=== PATIENT | female | born 1945 | race Caucasian/White ===

== ENCOUNTER → 2021-11-28 10:28 | Outpatient (BNVA) | payer MEDICARE, MEDICAID, SELFPAY | PROVIDERS: Visit Provider Psychiatry & Neurology Neurology | DX: H81.10 Benign paroxysmal vertigo, unspecified ear (principal); R25.1 Tremor, unspecified | CPT/HCPCS: 99212 ==

== ENCOUNTER → 2022-05-31 10:28 | Outpatient (BNVA) | payer MEDICARE, MEDICAID, SELFPAY | PROVIDERS: PCP Nurse Practitioner Gerontology; Visit Provider Psychiatry & Neurology Neurology | DX: H81.10 Benign paroxysmal vertigo, unspecified ear (principal); M54.2 Cervicalgia; R25.1 Tremor, unspecified | CPT/HCPCS: 99212 ==

== ENCOUNTER → 2022-06-14 10:28 | Outpatient (BNVA) | payer MEDICARE, MEDICAID, SELFPAY | PROVIDERS: PCP Nurse Practitioner Gerontology; Visit Provider Psychiatry & Neurology Neurology | DX: H81.10 Benign paroxysmal vertigo, unspecified ear (principal); R25.1 Tremor, unspecified; M54.2 Cervicalgia | CPT/HCPCS: 99212 ==

== ENCOUNTER 2023-03-29 12:20 | Outpatient (AMB) | payer MEDICARE, MEDICAID, SELFPAY ==
--- NOTE | 2023-03-29 12:31 | MHC.OFFVIS ---
Intake Vital Signs 03/29/23 12:32 Weight 217 lb 4 oz BP 132/80 Blood Pressure Location Lt brachial Position Sitting Pulse 95 Pulse Source Pulse Oximeter Temp 84 F L Pulse Oximetry (%) 98 Oxygen Delivery Method Room Air Intake Visit Reasons: 6m follow up -confirmed Intake Note: Pt presents today for 6 month fup still complains of headaches Allergies morphine Allergy (Severe, Verified 03/29/23 12:35) nausea and hives metformin Allergy (Intermediate, Verified 03/29/23 12:35) nausea and hives tizanidine Allergy (Intermediate, Verified 03/29/23 12:35) nausea and hives tramadol Allergy (Intermediate, Verified 03/29/23 12:35) nausea and hives hydromorphone [From Dilaudid] Adverse Reaction (Verified 03/29/23 12:35) Rash Medication List - Last Reconciled 03/29/23 by Nelia Silveira MD albuterol sulfate 2 mg PO Q8H bupropion HCl 100 mg PO .q12hrs buspirone 7.5 mg PO BID calcium citrate 1,200 mg PO DAILY dexlansoprazole (Dexilant) 60 mg PO DAILY fluticasone propion-salmeterol 250-50 mcg/dose (Advair Diskus) 1 inh inhalation Q12H gabapentin 300 mg PO TID glipizide ER 2.5 mg PO DAILY ipratropium-albuterol 20-100 mcg/actuation (Combivent Respimat) 1 puff inhalation Q6H levothyroxine 112 mcg PO DAILY lovastatin 40 mg PO DAILY mirtazapine 7.5 mg PO DAILY multivitamin 1 tab PO DAILY potassium chloride ER 10 mEq PO DAILY teriparatide ([place]eo) 20 mcg subcut DAILY warfarin 5 mg PO DAILY HPI HPI Comments History of Present Illness Details 77-year-old female with benign positional vertigo, exaggerated physiological tremor, restless leg syndrome comes for follow-up.Her dizzy spells are better. she has adapted by not bending over and avoiding some activities. Her tremors are well controlled with gabapentin and her restless leg syndrome is controlled with gabapentin. [facility] Medical History Anxiety Benign paroxysmal vertigo C. difficile colitis Cataract Colon polyp COPD (chronic obstructive pulmonary disease) Diabetes DVT (deep venous thrombosis) Fibromyalgia GERD (gastroesophageal reflux disease) Heart attack Hyperlipidemia Osteoporosis Pulmonary embolus Surgical History H/O shoulder surgery S/P IVC filter Family History Mother Cancer Social History Alcohol intake: never Patient Tobacco Use Status: Former Tobacco user Physical Exam Vital Signs: Last Vital Signs Temp 84 F L 03/29/23 12:32 Pulse 95 03/29/23 12:32 BP 132/80 03/29/23 12:32 Pulse Ox 98 03/29/23 12:32 Oxygen Delivery Method Room Air 03/29/23 12:32 Const General: cooperative, healthy appearing and comfortable Nutritional Appearance: overweight Orientation/consciousness: patient oriented x3 Eyes Pupils: Equal, round and reactive pupils present Neuro Other: mild bilateral upper extremity postural and action tremor. Fine finger movements in foot taps are normal. Tone was normal. better range of motion in neck - tightness in neck muscles General: patient oriented x3 Cranial nerves: Yes CN's II-XII intact bilaterally, Yes Equal, round and reactive pupils present and Yes Normal facial strength present Gait exam (Neuro): Normal gait present Assessment & Plan Assessment & Plan (1) Benign paroxysmal vertigo: Code(s): H81.10 - Benign paroxysmal vertigo, unspecified ear (2) Tremor: Code(s): R25.1 - Tremor, unspecified (3) Neck pain: Comment: severe spasm Code(s): M54.2 - Cervicalgia Plan Continue vestibular exercises. Continue gabapentin 300 mg q.a.m. q.noon and 600 mg q.h.s.. Continue warm compresses to neck and range of motion exercise to neck Medications: New gabapentin 300 mg PO TID 270 caps 3RF Coding Level of Care Code Est Pt Level 4 (41874) Diagnoses Benign paroxysmal vertigo H81.10 Tremor R25.1 Neck pain M54.2
[2023-03-29 12:32] VITALS: BP 132/80; PULSE 95; TEMP 28.8; O2SAT 98
== END 2023-03-29 13:14 | disposition home or self-care (01) ==
PROVIDERS: Visit Provider Psychiatry & Neurology Neurology
DX: H81.10 Benign paroxysmal vertigo, unspecified ear (principal); R25.1 Tremor, unspecified; M54.2 Cervicalgia
CPT/HCPCS: 99214

== ENCOUNTER → 2023-03-29 12:20 | Outpatient (BNVA) | payer MEDICARE, MEDICAID, SELFPAY | PROVIDERS: Visit Provider Psychiatry & Neurology Neurology | DX: H81.10 Benign paroxysmal vertigo, unspecified ear (principal); R25.1 Tremor, unspecified; M54.2 Cervicalgia | CPT/HCPCS: 99212 ==

== ENCOUNTER 2024-02-14 12:34 | Outpatient (AMB) | payer MEDICARE, MEDICAID, SELFPAY ==
--- NOTE | 2024-02-14 12:40 | MHC.OFFVIS ---
Vital Signs 02/14/24 12:41 Height 5 ft 3 in Weight 225 lb BMI 39.9 BP 122/70 Blood Pressure Location Rt brachial Position Sitting Respiration 16 Pulse 96 Pulse Source Pulse Oximeter Intake Visit Reasons: Follow up - Confirmed Intake Note: Pt presents for one year follow up for Benign paroxysmal vertigo. 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 Allergies morphine Allergy (Severe, Verified 02/14/24 12:40) nausea and hives metformin Allergy (Intermediate, Verified 02/14/24 12:40) nausea and hives tizanidine Allergy (Intermediate, Verified 02/14/24 12:40) nausea and hives tramadol Allergy (Intermediate, Verified 02/14/24 12:40) nausea and hives hydromorphone [From Dilaudid] Adverse Reaction (Verified 02/14/24 12:40) Rash Medication List - Last Reconciled 02/14/24 by Nelia Silveira MD albuterol sulfate 2 mg PO Q8H bupropion HCl 100 mg PO .q12hrs buspirone 7.5 mg PO BID calcium citrate 1,200 mg PO DAILY dexlansoprazole (Dexilant) 60 mg PO DAILY fluticasone propion-salmeterol 250-50 mcg/dose (Advair Diskus) 1 inh inhalation Q12H gabapentin 300 mg PO TID glipizide ER 2.5 mg PO DAILY ipratropium-albuterol 20-100 mcg/actuation (Combivent Respimat) 1 puff inhalation Q6H levothyroxine 112 mcg PO DAILY lovastatin 40 mg PO DAILY mirtazapine 7.5 mg PO DAILY multivitamin 1 tab PO DAILY potassium chloride ER 10 mEq PO DAILY warfarin 5 mg PO DAILY zoledronic qbrq-efmryvfu-nvpkj 5 mg/100 mL (Reclast) ea IV HPI Comments Details: 78-year-old female with benign positional vertigo, exaggerated physiological tremor, restless leg syndrome comes for follow-up.she is doing good. But recently had colon polyps removed and is following up with GI Her dizzy spells are better. she has adapted by not bending over and avoiding some activities. Her tremors were well controlled with gabapentin but with recent stress it has increased and her restless leg syndrome is controlled with gabapentin. [facility] Medical History Osteoporosis C. difficile colitis DVT (deep venous thrombosis) Pulmonary embolus Hyperlipidemia GERD (gastroesophageal reflux disease) Fibromyalgia COPD (chronic obstructive pulmonary disease) Colon polyp Benign paroxysmal vertigo Diabetes Anxiety Heart attack Cataract Surgical History H/O shoulder surgery S/P IVC filter Family History Mother Cancer Social History Alcohol intake: never Patient Tobacco Use Status: Former Tobacco user Physical Exam Vital Signs: Last Vital Signs Pulse 96 02/14/24 12:41 Resp 16 02/14/24 12:41 BP 122/70 02/14/24 12:41 BMI result Body Mass Index 39.9 Const General: cooperative, healthy appearing and comfortable Nutritional Appearance: overweight Orientation/consciousness: patient oriented x3 Eyes Pupils: Equal, round and reactive pupils present Neuro Other: mild bilateral upper extremity postural and action tremor. Fine finger movements in foot taps are normal. Tone was normal. better range of motion in neck - tightness in neck muscles General: patient oriented x3 Cranial nerves: Yes CN's II-XII intact bilaterally, Yes Equal, round and reactive pupils present and Yes Normal facial strength present Gait exam (Neuro): Normal gait present Assessment & Plan Assessment & Plan (1) Benign paroxysmal vertigo: Code(s): H81.10 - Benign paroxysmal vertigo, unspecified ear Category: Medical (2) Tremor: Code(s): R25.1 - Tremor, unspecified Category: Medical (3) Neck pain: Comment: severe spasm Code(s): M54.2 - Cervicalgia Category: Medical Plan Continue vestibular exercises. Continue gabapentin 300 mg q.a.m. q.noon and 600 mg q.h.s.. Continue warm compresses to neck and range of motion exercise to neck Coding Level of Care Code Est Pt Level 4 (76562) Diagnoses Benign paroxysmal vertigo H81.10 Tremor R25.1 Neck pain M54.2
[2024-02-14 12:41] VITALS: BP 122/70; PULSE 96; RESP 16; BMI 39.9
== END 2024-02-14 13:21 | disposition home or self-care (01) ==
PROVIDERS: PCP Nurse Practitioner Gerontology; Visit Provider Psychiatry & Neurology Neurology
DX: H81.10 Benign paroxysmal vertigo, unspecified ear (principal); R25.1 Tremor, unspecified; M54.2 Cervicalgia
CPT/HCPCS: 99214

== ENCOUNTER → 2024-02-14 12:34 | Outpatient (BNVA) | payer MEDICARE, MEDICAID, SELFPAY | PROVIDERS: PCP Nurse Practitioner Gerontology; Visit Provider Psychiatry & Neurology Neurology | DX: H81.10 Benign paroxysmal vertigo, unspecified ear (principal); R25.1 Tremor, unspecified; M54.2 Cervicalgia | CPT/HCPCS: 99212 ==

== ENCOUNTER 2025-02-16 09:47 | Outpatient (AMB) | payer MEDICARE, MEDICAID, SELFPAY ==
--- NOTE | 2025-02-16 09:47 | A.OFFVIS_ITS ---
Intake Visit Reasons: Follow up Intake Note: Patient following up for Benign paroxysmal vertigo Allergies morphine Allergy (Severe, Verified 02/16/25 09:48) nausea and hives metformin Allergy (Intermediate, Verified 02/16/25 09:48) nausea and hives tizanidine Allergy (Intermediate, Verified 02/16/25 09:48) nausea and hives tramadol Allergy (Intermediate, Verified 02/16/25 09:48) nausea and hives hydromorphone [From Dilaudid] Adverse Reaction (Verified 02/16/25 09:48) Rash HPI Comments Details: 79-year-old female with benign positional vertigo, exaggerated physiological tremor, restless leg syndrome calls for follow-up.she is doing good.she recently started on [place] and is doing well. Her dizzy spells are better. she has adapted by not bending over and avoiding some activities. Her tremors were well controlled with gabapentin but with recent stress it has increased and her restless leg syndrome is controlled with gabapentin. [facility] Medical History Osteoporosis C. difficile colitis DVT (deep venous thrombosis) Pulmonary embolus Hyperlipidemia GERD (gastroesophageal reflux disease) Fibromyalgia COPD (chronic obstructive pulmonary disease) Colon polyp Benign paroxysmal vertigo Diabetes Anxiety Heart attack Cataract Surgical History H/O shoulder surgery S/P IVC filter Family History Mother Cancer Social History Alcohol intake: never Patient Tobacco Use Status: Former Tobacco user Physical Exam Const Other: speech - normal Mood stable General: cooperative Orientation/consciousness: patient oriented x3 Neuro General: patient oriented x3 Telehealth Telehealth Telehealth Platform: Telephone Location of provider rendering services: practice address Location of patient: address on file Patient Identification confirmed using: Name, : Yes Telehealth method: voice only Patient verbally consented to treatment: Yes Patient verbally consented to billing insurance company: Yes Patient informed of any privacy concerns related to visit: Yes Assessment & Plan Assessment & Plan (1) Benign paroxysmal vertigo: Code(s): H81.10 - Benign paroxysmal vertigo, unspecified ear Category: Medical Qualifiers: Laterality: unspecified laterality Qualified Code(s): H81.10 - Benign paroxysmal vertigo, unspecified ear (2) Tremor: Code(s): R25.1 - Tremor, unspecified Category: Medical (3) Neck pain: Comment: severe spasm Code(s): M54.2 - Cervicalgia Category: Medical Plan Continue vestibular exercises. Continue gabapentin 300 mg tid Massage as needed Continue warm compresses to neck and range of motion exercise to neck Coding Level of Care Code Tele Est Pt Level 3 (55381) Diagnoses Benign paroxysmal vertigo, unspecified laterality H81.10 Laterality: unspecified laterality Tremor R25.1 Neck pain M54.2
--- OUTSIDE RECORDS SUMMARY | 2025-02-16 10:43 | XMS_ITS | Clinical Summary ---
Author Organization [address] [facility] Address [address] [place] [address] Phone Care Team Providers Care Project Mgr Name Role Phone Holly Walker NP Primary Care Provider [phone] Allergies Active Allergy Reactions Criticality Noted Date Comments Hydromorphone 04/20/2022 Metformin 11/08/2016 Other reaction(s): Dizziness Morphine 08/09/2009 Tramadol Itching 05/30/2012 Medications busPIRone (BUSPAR) 7.5 mg tablet Take 1 tablet (7.5 mg total) by mouth 2 (two) times a day. Active calcium citrate/vitamin D3 (CALCIUM CITRATE + D ORAL) Take 300 mg by mouth. Active fluticasone-jefe meterol (ADVAIR DISKUS) 250-50 mcg/dose diskus inhaler Inhale 1 puff by mouth 2 (two) times a day. 07/18/2010 Active gabapentin (NEURONTIN) 300 mg capsule 1 capsule (300 mg total). 03/04/2014 Active glipiZIDE (GLUCOTROL XL) 10 mg 24 hr tablet Take 2.6 mg by mouth. 09/04/2012 Active ipratropium-alb uteroL (COMBIVENT RESPIMAT) 20-100 mcg/actuation inhaler INHALE 1 PUFFS Every 6 hours PRN 05/09/2013 Active levothyroxine (SYNTHROID, LEVOTHROID) 112 mcg tablet Take 1 tablet (112 mcg total) by mouth 1 (one) time each day. 11/08/2016 Active lovastatin (MEVACOR) 40 mg tablet 1 tablet (40 mg total). 08/02/2009 Active mirtazapine (REMERON) 15 mg tablet Take 1 tablet (15 mg total) by mouth. Active pioglitazone (ACTOS) 30 mg tablet 1 tablet (30 mg total). 05/16/2017 Active potassium chloride (MICRO-K) 10 mEq CR capsule 1 capsule (10 mEq total). 11/08/2016 Active warfarin (COUMADIN) 5 mg tablet 1 tablet (5 mg total). 09/28/2009 Active FREESTYLE LANCETS MISC USE TO TEST BLOOD SUGAR TWICE DAILY 04/10/2016 Active blood sugar diagnostic (FreeStyle Lite Strips) test strip 2 (two) times a day. 04/10/2016 Active ascorbic acid (VITAMIN C) 500 mg tablet Take 1 tablet (500 mg total) by mouth 1 (one) time each day. Active ferrous sulfate 325 mg (65 mg elemental iron) tablet Take 1 tablet (325 mg total) by mouth 1 (one) time each day with breakfast. Active multivitamin with minerals tablet Take 1 tablet by mouth 1 (one) time each day. Active cyanocobalamin (VITAMIN B-12) 250 mcg tablet Take 1 tablet (250 mcg total) by mouth 1 (one) time each day. Active losartan (COZAAR) 25 mg tablet Take 1 tablet (25 mg total) by mouth 1 (one) time each day. Active loperamide (IMODIUM) 2 mg capsule Take 1 capsule (2 mg total) by mouth at bedtime. 90 capsule 3 11/06/2024 Active pantoprazole (PROTONIX) 40 mg EC tablet Take 1 tablet (40 mg total) by mouth 2 (two) times a day before meals. Do not crush, chew, or split. 60 each 3 12/24/2024 Active Active Problems Problem Noted Date Diagnosed Date Diabetes mellitus type 2, un complicated ([facility] V24, [facility] V28) 05/16/2017 Hyperlipidemia 05/14/2017 Hypothyroidism 05/14/2017 Peripheral neuropathy 05/14/2017 Recurrent deep vein thrombos is (DVT) ([facility] V24, [facility] V28) 03/26/2017 Overview (06/03/2024): [place] IVC filter placed Coronary atherosclerosis 11/15/2016 Fibromyalgia 11/15/2016 Asthma 11/15/2016 May-Thurner syndrome 11/08/2016 Esophageal reflux 05/15/2016 PLMD (periodic limb movement disorder) 6 Nicotine dependence 05/09/2016 Pulmonary nodules 05/09/2016 Chronic obstructive pulmonar y disease ([facility] V24, [facility] V28) 04/03/2016 Osteoporosis 01/06/2016 Depression 11/11/2015 Anxiety disorder 11/11/2015 Benign colonic polyp 05/25/2015 Diverticulosis 11/25/2014 Internal hemorrhoids 07/16/2014 Benign paroxysmal positional vertigo 03/18/2014 Meralgia paresthetica 12/15/2013 Allergic rhinitis 11/22/2013 Encounters Date Type Department Care Team Description 12/15/2024 Telephone Gastroenterology - [place] [address] [facility] [address] [place] [address] Mendy Mullins PA PRIOR AUTHORIZATION from Last 3 Months Immunizations Name Administration Dates Next Due Pfizer SARS-CoV-2 COVID-19, mRNA, LNP-S, preservative free 12/04/2020,11/13/2020 Pneumococcal conjugate 13 va lent (Prevnar 13, PCV13) 2mo and older 05/17/2015 Pneumococcal polysaccharide 23 valent (Pneumovax 23) 2yo and older 08/12/2010 Tdap Tetanus diptheria acell ular pertussis (Boostrix; Adacel) 7yo and older 08/08/2012 Zoster Live 02/08/2017 Surgical History Surgery Date Site/Laterality Comments EYE SURGERY PROCEDURE: HISTORICAL EYE SURGERY; COMMENT: LASIK APPENDECTOMY PROCEDURE: HISTORICAL APPENDECTOMY CHOLECYSTECTOMY PROCEDURE: HISTORICAL CHOLECYSTECTOMY OTHER SURGICAL HISTORY PROCEDURE: HISTORY OTHER; COMMENT: [place] IVC filter placed HYSTERECTOMY PROCEDURE: HISTORICAL HYSTERECTOMY Medical History Medical History Date Comments Allergic rhinitis 11/22/2013 DX:Allergic rh initis Anxiety disorder 11/11/2015 DX:Anxiety diso rder Asthma 11/15/2016 DX:Asthma Benign colonic polyp 05/25/2015 DX:Benign c olonic polyp Benign paroxysmal positional vertigo 03/18/2014 DX:Benign paroxysmal positional vertigo Chronic anticoagulation 11/11/2015 DX:Chron ic anticoagulation Chronic obstructive pulmonar y disease ([facility] V24, [facility] V28) 04/03/2016 DX:Chronic obstructive pulm onary disease (HCC) Coronary atherosclerosis 11/15/2016 DX:Jamar nary atherosclerosis Degeneration of intervertebral disc 07/18/2006 DX:Degeneration of intervertebral disc Depression 11/11/2015 DX:Depression Diabetes mellitus type 2, uncomplicated ([facility] V24, [facility] V28) 05/16/2017 DX:Diabetes mellitus type 2, uncomplicated ([facility]) Diverticulosis 11/25/2014 DX:Diverticulosi s Esophageal reflux 05/15/2016 DX:Esophageal reflux Fibromyalgia 11/15/2016 DX:Fibromyalgia History of Clostridium diffi cile infection 02/23/2017 DX:History of Clostridium di fficile infection History of osteomyelitis 11/08/2016 DX:Hist ory of osteomyelitis History of pulmonary embolus (PE) 05/25/2017 DX:History of pulmonary embolus (PE) Hyperlipidemia 05/14/2017 DX:Hyperlipidemi a Hypothyroidism 05/14/2017 DX:Hypothyroidis m Internal hemorrhoids 07/16/2014 DX:Internal hemorrhoids May-Thurner syndrome 11/08/2016 DX:May-Thur ner syndrome Meralgia paresthetica 12/15/2013 DX:Meralgi a paresthetica Nicotine dependence 05/09/2016 DX:Nicotine dependence 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/2016 DX:Non-immune anticoagulant disorder Osteoporosis 01/06/2016 DX:Osteoporosis Peripheral neuropathy 05/14/2017 DX:Periphe ral neuropathy PLMD (periodic limb movement disorder) 05/09/2016 DX:PLMD (periodic limb movem ent disorder) Pulmonary nodules 05/09/2016 DX:Pulmonary n odules Recurrent deep vein thrombos is (DVT) ([facility] V24, [facility] V28) 03/26/2017 DX:Recurrent deep vein thro mbosis (DVT) ([facility]); COMMENT: [place] IVC filter placed Social History Tobacco Use Types Packs/Day Years Used Date Smoking Tobacco: Never Assessed Comments Unknown Sex and Gender Information Value Date Recorded Sex Assigned at Not on file Legal Sex Female 1:20 AM EST Gender Identity Not on file Sexual Orientation Not on file Obstetrics History Last Filed Vital Signs Vital Sign Reading Time Taken Comments Blood Pressure 142/70 10/30/2024 10:23 AM EST Pulse 84 05/28/2024 10:52 AM EDT Temperature - - Respiratory Rate - - Oxygen Saturation - - Inhaled Oxygen Concentration - - Weight 98 kg (216 lb) 10/30/2024 10:23 AM EST Height 160 cm (5' 3 ) 10/30/2024 10:23 AM EST Body Mass Index 38.26 10/30/2024 10:23 AM EST Plan of Treatment Upcoming Encounters Date Type Department Care Team (Late st Contact Info) Description 02/18/2025 11:00 AM EDT Office Visit Pulmonolgy - [place] [address] [phone] Wilner Perea MD [address] [address] 04/30/2025 11:10 AM EDT Office Visit Gastroenterology - [address] [phone] Mendy Mullins PA [address] [address] Health Maintenance Due Date Last Done Comments Diabetes: Annual Foot Exam 1957 Diabetes: Annual Retina Eye Exam 1955 Hepatitis A Vaccines (1 of 2 - Risk 2-dose series) 1966 Hepatitis B Vaccines (1 of 3 - Risk 3-dose series) 2007 Pneumococcal Vaccine: 50+ Years (3 of 3 - PPSV23, PCV20 or PCV21) 08/12/2015 05/17/2015, 08/12/2010 Zoster Vaccines (2 of 2) 11/11/2019 09/16/2019, 06/04/2017 Cholesterol Screening (Lipid Panel) 08/06/2022 Colorectal Cancer Screening: Stool Based Tests (FOBT/FIT) 08/06/2022 Depression Screening 08/06/2022 Falls Risk Assessment 08/06/2022 Hepatitis C Screening 08/06/2022 Medicare Annual Wellness Visit 08/06/2022 Osteoporosis Screening (Bone Density Screening) 08/06/2022 Social Influencers of Health Screening 08/06/2022 DTaP,Tdap,and Td Vaccines (2 - Td or Tdap) 08/08/2022 08/08/2012 Diabetes: Annual Urine Albumin-Creatinine Ratio (uACR) 08/15/2022 Diabetes: Blood Sugar Control Test (HGBA1C) 08/15/2022 COVID-19 Vaccine ( season) 2024 07/04/2023, 07/16/2022, 12/21/2021, Additional history exists Diabetes: Annual GFR (Glomerular Filtration Rate) 01/30/2025 01/31/2024 Hypertension/CHF/CAD Annual BMP Blood Test 01/30/2025 01/31/2024 Colorectal Cancer Screening: Colonoscopy 02/11/2025 Influenza Vaccine (Season Ended) 2025 07/02/2023, 06/14/2022, 07/11/2019, Additional history exists RSV Immunization Adult Patients Completed 07/13/2023 HIB Vaccines Aged Out No longer eligi ble based on patient's age to complete this topic HPV Vaccines Aged Out No longer eligi ble based on patient's age to complete this topic IPV Vaccines Aged Out No longer eligi ble based on patient's age to complete this topic MMR Vaccines Aged Out No longer eligi ble based on patient's age to complete this topic Meningococcal ACWY Vaccine Aged Out N o longer eligible based on patient's age to complete this topic Meningococcal B Vaccine Aged Out No l onger eligible based on patient's age to complete this topic RSV Immunization Patients Under 20 months Aged Out No longer eligible based on patient's age to complete this topic Varicella Vaccines Aged Out No longer eligible based on patient's age to complete this topic Insurance MEDICARE Care Teams Project Mgr Relationship Specialty Start Date End Date Holly Walker NP [address] [facility] [place] [address] PCP - General 01/24/24
== END 2025-02-16 12:54 | disposition home or self-care (01) ==
LOC: HO.HSMS 09:47
PROVIDERS: PCP Nurse Practitioner Gerontology; Visit Provider Psychiatry & Neurology Neurology
DX: H81.10 Benign paroxysmal vertigo, unspecified ear (principal); R25.1 Tremor, unspecified; M54.2 Cervicalgia
CPT/HCPCS: 99213

== ENCOUNTER → 2025-02-16 09:47 | Outpatient (BNVA) | payer MEDICARE, MEDICAID, SELFPAY | PROVIDERS: PCP Nurse Practitioner Gerontology; Visit Provider Psychiatry & Neurology Neurology | DX: Z13.89 Encounter for screening for other disorder (principal); H81.10 Benign paroxysmal vertigo, unspecified ear; R25.1 Tremor, unspecified; M54.2 Cervicalgia ==